=== PATIENT | male | born 1965 | race African-American/Black ===

== ENCOUNTER 2018-10-02 14:09 | Emergency (ER) | payer MEDICARE, OTHER ==
[~2018-10-02] VITALS: Ht 165.1 cm; Wt 65.9 kg
[~2018-10-02 14:09] MED LIST: ASPI81TA39 PO; DOCU-119 PO; GABA-529 PO; INSNOV SQ; LIDOP TD; LISI-661 PO; METF-960 PO; PANT40TA25 PO
[2018-10-02] MEDS ORDERED: SODIUM CHLORIDE 0.9% 1,000 ML IV ONE (15:15)
[2018-10-02] MEDS ORDERED: INSULIN REGULAR, HUMAN 100 UNITS/ML IVP ONE (15:15)
[2018-10-02] MEDS ORDERED: ACETAMINOPHEN 325 MG TABLET PO ONE (15:15)
[2018-10-02 15:51] LABS: ANION GAP 7 mmol/L (8-16); CALCIUM, TOTAL 8.3 mg/dL (8.8-10.5); CARBON DIOXIDE 28 mmol/L (22-29); CHLORIDE 99 mmol/L (98-107); CREATININE 1.08 mg/dL (0.60-1.30); GLOMERULAR FILTR. RATE CALC > 60 mL/min (>60); POTASSIUM 3.6 mmol/L (3.5-5.1); SODIUM SERUM 134 mmol/L (136-145); UREA NITROGEN, BLOOD 11 mg/dL (7-18)
[2018-10-02 16:05] LABS: GLUCOSE,RANDOM 435 mg/dL (70-110)
[2018-10-02 16:59] LABS: GLUCOSE,POINT OF CARE 88 MG/DL (70-110)
[2018-10-02 17:06] VITALS: BP 142/79
== END 2018-10-02 17:33 | disposition home or self-care (01) ==
LOC: EMS 14:10
DX: M54.5 Low back pain (principal); M54.2 Cervicalgia; E11.65 Type 2 diabetes mellitus with hyperglycemia; G81.94 Hemiplegia, unspecified affecting left nondominant side; K21.9 Gastro-esophageal reflux disease without esophagitis; I11.9 Hypertensive heart disease without heart failure; Z86.73 Personal history of transient ischemic attack (TIA), and cerebral infarction without residual deficits; Z79.84 Long term (current) use of oral hypoglycemic drugs; Z79.899 Other long term (current) drug therapy; Z79.4 Long term (current) use of insulin
CPT/HCPCS: 36415; 80048; 82962; 96361; 96374; 99283; J1815; J7030